=== PATIENT | female | born 1945 | race Caucasian/White ===

== ENCOUNTER → 2017-09-19 | Outpatient (CLI) | payer OTHER ==
[~2017-09-19] MED LIST: FISH OIL 1,2001 EAC4 PO; GLUCOPHAGE1000 MG PO; IBUPROFEN 800800 M1 PO; LISINOPRIL20 MG PO; METFORMIN HCL500 MG PO; MOBIC15 MG PO; MULTIVITAMINS; NORCO 5-325 TA1 EACH PO; OXYCODONE-ACET1 EAC2 PO; PRILOSEC40 MG PO; RELAFEN500 MG PO; SIMVASTATIN40 MG PO; VENLAFAXINE H37.5 M2 PO; VITAMIN D1000 UNI1 PO
== END ==
LOC: RAD 00:56
DX: Z12.31 Encounter for screening mammogram for malignant neoplasm of breast (principal)

== ENCOUNTER → 2020-06-19 | Outpatient (CLI) | payer OTHER | LOC: LAB 11:09 | PROVIDERS: ATTEND Family Medicine | DX: U07.1 COVID-19 (principal) ==

== ENCOUNTER → 2021-06-21 | Outpatient (CLI) | payer OTHER | LOC: BC 06-16 12:31 | PROVIDERS: ATTEND Family Medicine | DX: Z12.31 Encounter for screening mammogram for malignant neoplasm of breast (principal) ==

== ENCOUNTER → 2021-09-17 | Outpatient (CLI) | payer OTHER | LOC: RAD 12:39 | PROVIDERS: ATTEND Family Medicine | DX: M47.816 Spondylosis without myelopathy or radiculopathy, lumbar region (principal); M54.42 Lumbago with sciatica, left side; M41.9 Scoliosis, unspecified; G95.19 Other vascular myelopathies; R29.890 Loss of height; G95.89 Other specified diseases of spinal cord ==